=== PATIENT | female | born 1955 | race African-American/Black ===

== ENCOUNTER 2023-01-06 10:06 | Emergency (ER) | payer OTHER ==
[~2023-01-06] VITALS: Ht 157.5 cm; Wt 55.3 kg
[~2023-01-06 10:06] MED LIST: ATORVASTATIN CA20 MG PO; AZOR 5/20 MG TA1 TAB; CHILDREN'S ASPI81 MG; IRBESARTAN-HCT1 EAC1 PO; METFORMIN HCL750 MG PO; VITAMIN D21250 MCG PO
== END 2023-01-06 12:56 | disposition home or self-care (01) ==
LOC: ER 10:06
DX: E11.65 Type 2 diabetes mellitus with hyperglycemia (principal); R53.81 Other malaise; I10 Essential (primary) hypertension

== ENCOUNTER 2023-02-04 15:40 | Emergency (ER) | payer OTHER ==
[~2023-02-04] VITALS: Ht 157.5 cm; Wt 55.8 kg
== END 2023-02-04 20:47 | disposition home or self-care (01) ==
LOC: ER 15:40
DX: G44.89 Other headache syndrome (principal); I10 Essential (primary) hypertension

== ENCOUNTER 2025-07-05 12:52 | Emergency (ER) | payer OTHER ==
[~2025-07-05] VITALS: Ht 157.5 cm; Wt 54.0 kg
[2025-07-05] MEDS ORDERED: ACETAMINOPHEN 500 MG GEL..CAP PO ONE ×2 (14:51→15:00)
[2025-07-05] MEDS ORDERED: DEXAMETHASONE SODIUM PHOSPHATE 4 MG/ML VIAL ONE (14:51)
[2025-07-05] MEDS ORDERED: DEXAMETHASONE SODIUM PHOSPHATE 4 MG/ML VIAL IM ONE (15:00)
[2025-07-05 16:57] VITALS: BP 160/69; O2SAT 98
== END 2025-07-05 16:58 | disposition home or self-care (01) ==
LOC: ER 12:52
DX: R51.9 Headache, unspecified (principal); S09.8XXA Other specified injuries of head, initial encounter; W18.39XA Other fall on same level, initial encounter; Y93.89 Activity, other specified; Y92.89 Other specified places as the place of occurrence of the external cause